=== PATIENT | female | born 1975 | race African-American/Black ===

== ENCOUNTER 2022-01-07 23:10 | Emergency (ER) | payer SELFPAY ==
[~2022-01-07] VITALS: Ht 170.2 cm; Wt 107.0 kg
[2022-01-08] MEDS ORDERED: IBUPROFEN 400MG TABLET PO ONE (01:00)
[2022-01-08] MEDS ORDERED: ACETAMINOPHEN 325MG TABLET PO ONE (01:00)
[2022-01-08 01:04] VITALS: BP 133/90
[2022-01-08] MEDS ORDERED: KETOROLAC 60MG/2ML VIAL IM ONE (02:30)
== END 2022-01-08 04:28 | disposition home or self-care (01) ==
LOC: ER 23:10
DX: R51.9 Headache, unspecified (principal); J34.89 Other specified disorders of nose and nasal sinuses; Y04.0XXA Assault by unarmed brawl or fight, initial encounter; Y07.03 Male partner, perpetrator of maltreatment and neglect; Y93.89 Activity, other specified; Y92.018 Other place in single-family (private) house as the place of occurrence of the external cause
CPT/HCPCS: 70450; 70486; 99284; J1885